=== PATIENT | male | born 1945 | race Caucasian/White ===

== ENCOUNTER → 2016-07-25 | Day surgery (SDC) | payer MEDICARE, OTHER ==
--- NOTE | 2016-07-21 14:14 | MH ---
cc: Thang HERNANDEZ M.D. DATE OF ADMISSION: 07/25/2016 ADMITTING DIAGNOSIS Impingement syndrome, possible rotator cuff tear left shoulder, now being admitted for acromioplasty, possible rotator cuff repair and proximal bicipital tendon repair. HISTORY AND PHYSICAL This is a pleasant 71-year-old diabetic male who is being admitted today for surgery on his left shoulder due to impingement syndrome, possible rotator cuff tear and bicipital tendon tear. OTHER PAST HISTORY He recently underwent revision total knee surgery. He has a history of asthma, sleep apnea, diabetes, chronic back pain, stomach ulcers. CURRENT MEDICATIONS At the moment include: 1. Meclizine. 2. Avastin. 3. Glimepiride. 4. Omeprazole. 5. Pioglitazone. 6. Metformin. 7. Gabapentin. 8. Albuterol inhaler. REVIEW OF SYSTEMS Noncontributory. FAMILY HISTORY Noncontributory. SOCIAL HISTORY Does not smoke or drink. PREVIOUS SURGERIES Bilateral total knees in 1999, revision this past year. ALLERGIES He has no known allergies. PHYSICAL EXAMINATION GENERAL: We find a 71-year-old male, well-developed, well-nourished, oriented x3, complaining of pain in his left shoulder. VITAL SIGNS: Blood pressure 130/78, pulse 78 and regular, respirations 22, temperature 97.9, pulse oximetry 96% on room air. HEENT: Eyes PERRLA, EOMI. Ears, nose, mouth, throat clear. NECK: Supple. LUNGS: Clear. HEART: Regular rate. ABDOMEN: Soft. Positive bowel sounds, nontender. EXTREMITIES: The left shoulder to be tender. Neurovascularly intact to his fingers. IMPRESSION AT THIS TIME Impingement syndrome left shoulder, possible rotator cuff tear. PLAN Admission for acromioplasty, possible rotator cuff repair, possible bicipital tendon repair today. The patient given a prescription for postoperative pain control in the office. MD WOLF Geronimo/KARLYL /1:24 PM /1:49 PM
[~2016-07-25] VITALS: Ht 180.3 cm; Wt 112.3 kg
[~2016-07-25] MED LIST: ACETAMINOPHEN/HYDROcodone 325 MG/5 MG TAB ONE; BUPIVACAINE HCL PF 0.25% 30 ML VIAL ONE; BUPIVACAINE HCL PF 0.5% 30 ML VIAL ONE; CHLORHEXIDINE GLUCONATE 4% SOLN 120 ML BTL TOP SCH; EMPA1TAB3 PO; FAMOTIDINE 20 MG/2 ML VIAL ONE; GLYB5TAB3 PO; HYDR-3583 PO; INSULIN HUMAN REGULAR 1,000 UNITS/10 ML VIAL SQ PRN; LACTATED RINGER'S 1000 ML IV SCH; LEVEMIR SQ; MECL-62 PO; METOPROLOL TARTRATE 25 MG TAB PO PRN; MIDAZOLAM HCL 2 MG/2 ML VIAL ONE; MULT1TAB84 PO; NOVOLOGSS SQ; OMEP20TA PO; ONDANSETRON HCL 4 MG/2 ML VIAL IV PUSH ONE; PIOG15TA7 PO; PROPOFOL 200 MG/20 ML AMP IV ONE; ROPIVACAINE 0.5% PF INJ 30 ML VIAL NERV BLOCK ONE; SODIUM CHLORID 0.9% 500 ML IV SCH; ceFAZolin 2 GM PREMIX 50 ML IV SCH; fentaNYL CITRATE 250 MCG/5 ML AMP ONE
[2016-07-25 06:41] VITALS: BP 167/87; PULSE 87; RESP 18; TEMP 98.3; O2SAT 97
[2016-07-25 06:57] LABS: AUTOMATED NEUTROPHIL # 2.2 TH/MM3 (1.8-7.7); BASOPHIL # 0.1 TH/MM3 (0-0.2); BASOPHIL % 1.4 % (0.0-2.0); EOSINOPHIL # 0.1 TH/MM3 (0-0.4); EOSINOPHIL % 3.4 % (0.0-4.0); LYMPH % 28.3 % (9.0-44.0); MEAN CELL VOLUME 75.8 FL (80.0-100.0); MEAN CORPUSCULAR HEMOGLOBIN 24.4 PG (27.0-34.0); MEAN CORPUSCULAR HGB CONC 32.2 % (32.0-36.0); MONO % 8.7 % (0.0-8.0); NEUT % 58.2 % (16.0-70.0); PLATELET COUNT 163 TH/MM3 (150-450); RED BLOOD COUNT 4.22 MIL/MM3 (4.50-5.90); RED CELL DISTRIBUTION WIDTH 17.2 % (11.6-17.2); WHITE BLOOD COUNT 3.7 TH/MM3 (4.0-11.0)
[2016-07-25 07:00] LABS: BLOOD, URINE NEG (NEG); GLUCOSE,URINE 1000 mg/dL (NEG); KETONE, URINE NEG (NEG); NITRITE,URINE NEG (NEG); SQUAMOUS EPITHELIAL CELL URINE <1 /hpf (0-5); URINE COLOR YELLOW (YELLW/STRAW)
[2016-07-25 07:01] LABS: HEMO FLAGS AUTO DIFF
[2016-07-25 07:01] LABS: COMMENT (UR) CULT NOT INDICATED; CULTURE IF INDICATED CULT NOT INDICATED
[2016-07-25 07:09] LABS: APTT (PATIENT) 24.7 SEC (24.3-30.1); PROTHROMBIN TIME - PATIENT 10.7 SEC (9.8-11.6)
[2016-07-25 07:23] LABS: ANION GAP 10 MEQ/L (5-15); AST (GOT) 16 U/L (15-37); BICARBONATE 26.3 MEQ/L (21.0-32.0); BLOOD UREA NITROGEN 16 MG/DL (7-18); CHLORIDE 110 MEQ/L (98-107); GLOMERULAR FILTRATION RATE 74 ML/MIN (>89); POTASSIUM 3.9 MEQ/L (3.5-5.1); SODIUM (NA) 146 MEQ/L (136-145)
[2016-07-25 07:26] LABS: ALKALINE PHOSPHATASE 49 U/L (45-117); ALT (GPT) 32 U/L (12-78); TOTAL BILIRUBIN ADULT 0.2 MG/DL (0.2-1.0)
[2016-07-25 07:30] LABS: PLATELET ESTIMATE SMEAR NORMAL (NORMAL); PLATELET MORPHOLOGY ENLARGED (NORMAL); SCAN/DIFF AUTO DIFF CONFIRMED
[2016-07-25 13:17] VITALS: BP 141/68; PULSE 92; RESP 18; TEMP 97.5; O2SAT 94
--- NOTE | 2016-07-27 09:59 | MP ---
cc: Thang LYLES M.D. DATE OF SURGERY: 07/25/2016 PREOPERATIVE DIAGNOSIS Impingement syndrome, torn biceps tendon, cyst, left shoulder. POSTOPERATIVE DIAGNOSIS Impingement syndrome, partial tear rotator cuff, proximal bicipital tendon tear and a 2 cm cyst left humeral head. SURGERY PERFORMED Arthrotomy, acromioplasty, ligation of proximal biceps tendon tear, debridement and excision of 2 cm solitary cyst, left humeral head, and repair of partial rotator cuff tear with #2 FiberWire and filling of the cyst with demineralized bone matrix. SURGEON Dr. Lyles [employer] HE[employer] PHYSICIST FEDE Nieto ANESTHESIA General intubation and block. PROCEDURE The patient was brought to the operating room and placed on the operating table in a beach-chair position. After successful induction of general anesthesia the left shoulder and arm were prepped and draped in the usual manner. An anterior incision was then made along the deltopectoral groove starting from the clavicle and then down across the humeral head and proximal humerus, four inches in length, carried down through subcutaneous tissue through a deltoid-splitting incision to expose the bursa over the rotator cuff which was found to be hyperemic and removed to expose the rotator cuff. Most of the rotator cuff was grossly intact. There was some tearing of the supraspinatus which was later repaired using #2 FiberWire. The proximal biceps tendon was found to be torn at the level of the bicipital groove. This was ligated using #2 FiberWire into the surrounding soft tissue and removing the rest of the biceps tendon along the bicipital groove area. Next, the impingement noted on the undersurface of the acromion was removed using a curved osteotome and smoothed with a rasp to afford full range of motion. On the humeral head side there was noted soft bone and a cyst was found to be breaking through the cortex of the proximal humerus. The cyst measured 2 cm in diameter. This was debrided and the capsule removed. The cortical edges were debrided also using a curved curet through the cortex and then irrigated copiously with lactated Ringer's solution and antibiotic solution. After meticulous hemostasis was achieved this area was filled with 1 cc of Vivex DBM Plus demineralized bone matrix. After this was filled the soft tissue over it and the rotator cuff over it was repaired using interrupted #2 FiberWire. The wound was then irrigated copiously with antibiotic solution and meticulous hemostasis achieved. Full range of motion was appreciated with no instability and no impingement under the acromion. The deltoid was loosely approximated using running 0 Vicryl suture. The subcutaneous tissue was approximated using interrupted and running 2-0 and 3-0 Monocryl suture. Steri-Strips, sterile dressing and a sling were applied. Estimated blood loss was 50 cc. The sponge and suture count were correct. The patient tolerated the procedure well and left the operating room in satisfactory condition. J. MD WOLF Braden/ELENI /10:53 AM /9:41 AM
== END | disposition home or self-care (01) ==
LOC: HSDC 05:37
PROVIDERS: ATTEND Surgery
DX: M75.102 Unspecified rotator cuff tear or rupture of left shoulder, not specified as traumatic (principal); M75.42 Impingement syndrome of left shoulder; M66.822 Spontaneous rupture of other tendons, left upper arm; M85.412 Solitary bone cyst, left shoulder; E11.9 Type 2 diabetes mellitus without complications; G47.30 Sleep apnea, unspecified; J45.909 Unspecified asthma, uncomplicated; Z79.84 Long term (current) use of oral hypoglycemic drugs
CPT/HCPCS: 01630; 23415; 64415; 80053; 81001; 85025; 85610; 85730; 94664; J0690; J2250; J2405; J2795; J3010; 92950